=== PATIENT | female | born 1950 | race Caucasian/White ===

== ENCOUNTER 2017-11-09 14:29 | Emergency (ER) | payer OTHER ==
[2017-11-09 14:41] VITALS: RESP 18
--- NOTE | 2017-11-09 15:54 | EDPHY ---
General Narrative: CHIEF COMPLAINT: Right ankle and foot injury HISTORY OF PRESENT ILLNESS: Patient complains of pain in the right foot and ankle status post injury. She said earlier today she was walking her dog when she slipped, forcing her foot into inversion. She felt a sudden onset of pain in the right midfoot and just below the right lateral malleolus. She did not fall or strike the ankle. She did not strike her head or any also person. Her only complaint is mild pain in the right midfoot in below the lateral malleolus. It is minimal to 0 at rest. It is mild with ambulation and pressure. Does not radiate. No numbness or tingling. No weakness. No laceration. No other associated complaints or modifying factors. ESTABLISHED ORTHOPEDIST: [facility] REVIEW OF SYSTEMS: Ten systems reviewed and are negative unless otherwise noted in the HPI PAST MEDICAL HISTORY: Denies any ongoing medical diagnoses PAST SURGICAL HISTORY: No recent surgical history SOCIAL HISTORY: Nonsmoker. Retired public health nurse FAMILY HISTORY: Noncontributory EXAMINATION General Appearance: Alert, no distress Cardiovascular: DP pulses are 2+ and symmetric. PT pulses 2+ and symmetric. Good signs of perfusion of the right foot. Neurological: A&O, light sensation to the dorsum of the foot and plantar surface of the foot symmetric. No foot drop. Normal proprioception of the right great toe. Skin: Warm and dry, no rash. No petechiae or purpura. No ecchymosis. No laceration or abrasion Extremities: Tenderness of the right lateral mid foot over the 5th metatarsal and just below lateral malleolus. There is no crepitus or deformity. Range of motion of the ankle symmetric. No tenderness of the right calcaneus with from palpation. Psychiatric: Mood and affect normal DIFFERENTIAL DIAGNOSES: Including but not limited to sprain, strain, fracture, dislocation, subluxation MDM: 3:50 p.m. Acute sprain of the right foot and ankle. No obvious abnormality on the x-ray. She is neuro intact. Minimal pain at rest. Mild pain with ambulation. She will be provided a postoperative shoe. She is weight-bearing as tolerated. We discussed ice, anti-inflammatories [id number] medication. She does not want any narcotic pain medication for this. She will like to follow up within her network of [facility]. We discussed ED precautions. She is discharged home stable condition. 4:10 p.m. Patient has been placed in a postoperative shoe and she has ambulated with no pain. Discharged home stable condition. Addendum 5:10 p.m. Patient was discharged prior to the radiology interpretation. Radiology interpretation is nondisplaced lateral malleolus fracture. While this may actually be the case, This does not clinically match the patient's picture. She had no tenderness to palpation of the lateral malleolus. Additionally, she had no pain with ambulation a postoperative shoe. I have contacted the patient to instructor to return for a Harris boot placement for protection of the potential fracture. SUPERVISION: This patient was independently evaluated without direct involvement of or examination by the attending physician. ED Precautions: Worsening pain. Erythema, edema, cyanosis, pallor, paresthesia or anesthesia. - Diagnostics Imaging Results: Imaging Impressions Ankle X-Ray 11/09/17 14:54 Impression: Nondisplaced fracture lateral malleolus. - History Smoking Status: Never smoked - Objective Vital Signs: Initial Vital Signs Temperature (C) 98.1 F 11/09/17 14:38 Heart Rate 71 11/09/17 14:38 Respiratory Rate 18 11/09/17 14:38 Blood Pressure 127/77 H 11/09/17 14:38 O2 Sat (%) 98 11/09/17 14:38 O2 Delivery Mode Room Air Departure - Departure Disposition: Home, Routine, Self-Care Clinical Impression: Sprain of foot, right Qualifiers: Encounter type: initial encounter Qualified Code(s): S93.601A - Unspecified sprain of right foot, initial encounter Condition: Good Instructions: Foot Sprain (ED) Additional Instructions: 1. Rest, ice and elevation often 2. [id number] anti-inflammatories as discussed as needed 3. ED precautions for worsening pain, numbness, tingling, ft drop. 4. Contact [facility] for orthopedic follow-up early next week Referrals: CITLALY SANTOS [Other] - As per Instructions
[2017-11-09 16:14] VITALS: BP 139/94; PULSE 65; TEMP 97.7; O2SAT 95
== END 2017-11-09 16:12 | disposition home or self-care (01) ==
DX: S93.601A Unspecified sprain of right foot, initial encounter (principal); W18.49XA Other slipping, tripping and stumbling without falling, initial encounter; Y93.01 Activity, walking, marching and hiking
CPT/HCPCS: 73610; 99283; L4386